=== PATIENT | female | born 1950 | race Caucasian/White ===

== ENCOUNTER 2021-03-13 15:57 | Inpatient (IN) | payer MEDICARE ==
[~2021-03-13] VITALS: Ht 162.6 cm; Wt 66.7 kg
--- NOTE | 2021-03-13 16:05 | NUR ---
TO ER BED 9, [id number] [facility] FOR HEADACHE AND DIZZINESS SINCE SATURDAY AM S/P FALL AND HITTING HEAD TO RV HEATER. AAOX3, BREATHING EVEN AND NON LABORED, CONNECTED TO MONITOR
--- NOTE | 2021-03-13 16:10 | NUR ---
DR QUEEN AT BEDSIDE
[2021-03-13 16:33] LABS: BASOPHILS % (AUTO) 0.5 % (0.0-2.0); EOSINOPHILS % (AUTO) 1.3 % (0.0-6.0); HEMATOCRIT 34 % (33-45); HEMOGLOBIN 11.6 g/dL (11.5-14.8); LYMPHOCYTES # (AUTO) 1.3 K/uL (0.8-4.8); LYMPHOCYTES % (AUTO) 17.4 % (20.0-44.0); MEAN CORPUSCULAR HGB CONC 34 g/dl (31.0-36.0); MEAN CORPUSCULAR VOLUME 91 fL (82-100); MONOCYTES # (AUTO) 0.6 K/uL (0.1-1.30); MONOCYTES % (AUTO) 7.8 % (2.0-12.0); NEUTROPHILS # (AUTO) 5.6 K/uL (1.8-8.9); PLATELET COUNT (AUTO) 224 K/uL (150-450); RED BLOOD CELL COUNT(AUTO) 3.78 MIL/uL (4.0-5.2); WHITE BLOOD COUNT (AUTO) 7.6 K/uL (4.3-11.0)
[2021-03-13 16:41] LABS: CALCIUM, SERUM 8.8 mg/dL (8.5-10.1); CREATININE 0.9 mg/dL (0.6-1.3); POTASSIUM 3.9 mmol/L (3.5-5.1)
--- NOTE | 2021-03-13 16:55 | NUR ---
TAM ([facility]) [phone]
--- NOTE | 2021-03-13 17:39 | NUR ---
SPOKE TO RADIOLOGY MD. PT HAS 3 MM ACUTE SUBDURAL HEMATOMA. DR.PHAM GONZALES.
--- NOTE | 2021-03-13 17:56 | NUR ---
NOTIFIED DR. BALDERAS OF PT CT
--- NOTE | 2021-03-13 18:17 | NUR ---
DR QUEEN TALKING TO THE PATIENT
[2021-03-13] MEDS ORDERED: MORPHINE SULFATE INJ 2 MG/ML DISP.SYRIN IV ONE (18:30)
[2021-03-13] MEDS ORDERED: ONDANSETRON HCL/PF - ER 4 MG/2 ML VIAL IV ONE (18:30)
[2021-03-13] MEDS ORDERED: ONDANSETRON HCL/PF 4 MG/2 ML VIAL ONE (18:51)
[2021-03-13] MEDS ORDERED: MORPHINE SULFATE INJ 2 MG/ML DISP.SYRIN ONE (18:52)
--- NOTE | 2021-03-13 19:00 | NUR ---
COVID SWAB DONE AND SENT TO LAB
--- NOTE | 2021-03-13 19:47 | NUR ---
MRSA SWAB COLLECTED AND SENT TO LAB. PATIENT'S BELONGINGS LIST DONE.
[2021-03-13] MEDS ORDERED: ONDANSETRON HCL/PF 4 MG/2 ML VIAL IVP PRN (20:30)
[2021-03-13] MEDS ORDERED: ACETAMINOPHEN 325 MG TABLET PO PRN (20:30)
--- NOTE | 2021-03-13 20:46 | NUR ---
SPOKE TO PT, PT AAOX4, NO NEURO DEFICIT. VSS.
--- NOTE | 2021-03-13 21:17 | NUR ---
REPORT GIVEN TO BERT PADRON FOR LANIE
--- NOTE | 2021-03-13 21:30 | NUR ---
PT TRANSFERED PER ACLS PROTOCOL
--- NOTE | 2021-03-13 21:41 | NUR ---
RN ms admission notes Received Pt from VITO Ratliff. Pt arrived at the unit with a gurney. Pt is alert and orientedX4. Respiration is normal in 2 L NC. No SOB. No S/S of distress noted. IV sites at R wrist#20 is clean, intact and flushes well. Skin assessment is done and performed and picture taken. Pt is able to ambulates with a steady gait and assist. Received admission orders from MD. Reorient Pt to the room and the use of call light. Pt verbalize understanding. Safety precautions is maintained. Bed at low position, brakes locked, side rails upX2, bed alarm is on and call light is within reach. Will continue to monitor.
[2021-03-13 22:00] VITALS: BP 175/81
[2021-03-13] MEDS: MORPHINE SULFATE INJ 2 MG/ML DISP.SYRIN IV PRN (22:15)
--- NOTE | 2021-03-13 22:15 | NUR ---
RN notes Pt is complaining of generalized pain 10/10 on pain scale and requesting morphine. Administered morphine 2 mg/iv push/prn as ordered for pain. Safety precautions is maintained. Will continue to monitor.
[2021-03-13] MEDS ORDERED: DEXTROSE 50%-WATER 50 ML DISP.SYRIN IV PRN (22:30)
--- NOTE | 2021-03-13 22:30 | NUR ---
RN notes Pt's blood sugar HS 78. Held regular insulin per level ordered. No S/S of hypoglycemia. Snack is provided. Will continue to monitor.
[2021-03-13] MEDS: BLOOD SUGAR DIAGNOSTIC 1 EACH STRIP IN SCH (22:38)
--- NOTE | 2021-03-13 22:48 | NUR ---
RN notes Pt signed consent for CT head WO contrast per MD order.
[2021-03-13] MEDS: INSULIN REGULAR, HUMAN 100 UNIT/ML 3 ML VIAL SQ PRN (22:55)
[2021-03-13] MEDS ORDERED: LEVETIRACETAM (500MG) 500 MG/5 ML VIAL IV ONE (23:15)
[2021-03-13 23:32] VITALS: BP 164/76
[2021-03-13] MEDS: hydrALAZINE HCL IV 20 MG VIAL IV PRN (23:44)
--- NOTE | 2021-03-13 23:45 | NUR ---
RN notes Received Keppra from nursing supervisor fabrication and assembly.
--- NOTE | 2021-03-13 23:47 | NUR ---
RN notes Pt's BP 164/76. Administered hydralazine 10mg/iv push/prn as ordered for high BP. Safety precautions is maintained. Will continue to monitor.
[2021-03-13] MEDS: LEVETIRACETAM (500MG) 500 MG in IV NS 0.9% 100 ML IV SCH (23:55)
[2021-03-14 00:36] VITALS: BP 122/51
--- NOTE | 2021-03-14 00:38 | NUR ---
RN notes Pt's BP 122/51, Pulse 69. No S/S of distress noted. Pt denies any pain at this time. Will continue to monitor.
--- NOTE | 2021-03-14 02:15 | NUR ---
RN notes Pt is complaining of headache and requesting meds. Administered tylenol 325mg/2 tabs/po/prn as ordered for headache. safety precautions is maintained. Will continue to monitor.
[2021-03-14] MEDS: MORPHINE SULFATE INJ 2 MG/ML DISP.SYRIN IV PRN ×2 (02:46→08:00)
--- NOTE | 2021-03-14 02:46 | NUR ---
RN notes Pt is complaining of generalized pain and requesting morphine. Administered morphine 2 mg/iv push/prn as ordered for pain. Safety precautions is maintained. Will continue to monitor.
[2021-03-14] MEDS: BLOOD SUGAR DIAGNOSTIC 1 EACH STRIP IN SCH ×3 (05:31→17:30)
[2021-03-14] MEDS: INSULIN REGULAR, HUMAN 100 UNIT/ML 3 ML VIAL SQ PRN (05:32)
--- NOTE | 2021-03-14 06:49 | NUR ---
MS RN CLOSING NOTE: PATIENT BECAME IRATE TOWARDS END OF SHIFT. STATING, "I TAKE 30MG OF MORPHINE TWICE A DAY! I WANT TO TALK TO THE NURSING BALLOON SANDER NOW!! IF SHE'S NOT HERE IN 1 HOUR, I'M LEAVING!" PATIENT THREW HER ICE PACKS, CHUCKS AND ITEMS FROM HER BEDSIDE TABLE ONTO THE FLOOR. NURSING HAS BEEN ADDRESSING PATIENT'S PAIN (HEADACHE) WITH PRN RX ANALGESICS, ICE PACKS, REPOSITIONING, PILLOWS SINCE SHE ARRIVED TO UNIT. BALLOON SANDER NOTIFIED. ENDORSED TO ONCOMING NURSE.
[2021-03-14 07:14] LABS: BASOPHILS % (AUTO) 0.3 % (0.0-2.0); EOSINOPHILS % (AUTO) 3.1 % (0.0-6.0); HEMATOCRIT 35 % (33-45); HEMOGLOBIN 11.5 g/dL (11.5-14.8); LYMPHOCYTES # (AUTO) 2.1 K/uL (0.8-4.8); LYMPHOCYTES % (AUTO) 35.4 % (20.0-44.0); MEAN CORPUSCULAR HGB CONC 33 g/dl (31.0-36.0); MEAN CORPUSCULAR VOLUME 92 fL (82-100); MONOCYTES # (AUTO) 0.6 K/uL (0.1-1.30); NEUTROPHILS # (AUTO) 3.1 K/uL (1.8-8.9); NEUTROPHILS % (AUTO) 51.2 % (43.0-81.0); PLATELET COUNT (AUTO) 208 K/uL (150-450); RED BLOOD CELL COUNT(AUTO) 3.78 MIL/uL (4.0-5.2)
[2021-03-14 07:42] LABS: ALBUMIN 3.5 g/dL (3.4-5.0); BILIRUBIN,TOTAL 0.3 mg/dL (0.2-1.0); CALCIUM, SERUM 8.4 mg/dL (8.5-10.1); CREATININE 0.9 mg/dL (0.6-1.3); MAGNESIUM 2.5 mg/dL (1.8-2.4); PHOSPHORUS 4.3 mg/dL (2.5-4.9); POTASSIUM 3.5 mmol/L (3.5-5.1); TOTAL PROTEIN, SERUM 6.7 g/dL (6.4-8.2)
--- NOTE | 2021-03-14 08:00 | NUR ---
m/s management developer: notes c/o 10/10 head pain, pt easily irritable and gets angry. medicated with morphine 2mg ivp by rn. instructed to call for assistance.
--- NOTE | 2021-03-14 08:09 | NUR ---
WOUND CARE CONSULT: PT ANGRY AND IRRITABLE, STATING " IF YOU WANT TO PROTECT MY SKIN, YOU SHOULD HAVE TAKEN BETTER CARE OF ME." PT PRESENTS WITH DRY ABRASION TO POSTERIOR SCALP, PRESENT ON ADMISSION. NO DRAINAGE NOTED. PT ABLE TO TURN AND REPOSITION IN BED. PT IS CONTINENT. WILL SEE PRN.
--- NOTE | 2021-03-14 08:30 | NUR ---
m/s entry level business analyst: notes pt remains angry and irritable and saying she has to take her morphine sulfate 30mg pills, it works for me. dr. gomes notified and made aware.
[2021-03-14 08:39] VITALS: BP 171/76
[2021-03-14] MEDS: hydrALAZINE HCL IV 20 MG VIAL IV PRN (09:24)
[2021-03-14] MEDS ORDERED: ROSU20TA32 PO (09:50)
[2021-03-14] MEDS ORDERED: SUVO10TA PO (09:50)
[2021-03-14] MEDS ORDERED: THYR15TA9 PO (09:50)
[2021-03-14] MEDS ORDERED: CARV3.122 PO (09:50)
[2021-03-14] MEDS ORDERED: TRAZ-257 PO (09:50)
[2021-03-14] MEDS ORDERED: POTA10TA10 PO (09:50)
[2021-03-14] MEDS ORDERED: BACL10TA PO (09:50)
[2021-03-14] MEDS ORDERED: OXYC1TAB12 PO (09:50)
[2021-03-14] MEDS ORDERED: FURO20TA4 PO (09:50)
[2021-03-14] MEDS ORDERED: PROM25TA15 PO ×2 (09:50→09:51)
[2021-03-14] MEDS ORDERED: CLON1TAB12 PO ×2 (09:50)
[2021-03-14] MEDS ORDERED: HORMONE MEDICATION PO (09:50)
[2021-03-14] MEDS ORDERED: MORP30TA7 PO (09:50)
[2021-03-14] MEDS: LEVETIRACETAM (500MG) 500 MG in IV NS 0.9% 100 ML IV SCH (10:30)
--- NOTE | 2021-03-14 11:00 | NUR ---
RN NOTES PT REFUSED HER KEPPRA IVPB. DESPITE EXPLANATION GIVEN, PT STATES THIS MEDICATION GIVES HER A HEADACHE AND DOES NOT WANT TO ACCEPT. RISKS OF NOT TAKING THIS MEDICATION WERE TAUGHT TO THE PT. DR WESTBROOK WAS NOTIFIED.
[2021-03-14] MEDS ORDERED: HYDROMORPHONE 1 MG/1 ML DISP.SYRIN IM/IV/SC ONE (11:27)
[2021-03-14] MEDS ORDERED: HYDROMORPHONE 1 MG/1 ML DISP.SYRIN IM/IV/SC PRN (11:30)
--- NOTE | 2021-03-14 11:30 | NUR ---
m/s archival studies professor: pain management consult seen and examined by dr. santos with new orders. orders acknowledged.
--- NOTE | 2021-03-14 11:44 | NUR ---
m/s dental ceramist assistant: notes pt remains angry and irritable re: her head pain. educatedc/o 01/15 head pain, medicated with dilaudid 1mg ivp by rn. instructed to call for assistance. will continue to monitor.
[2021-03-14 12:00] VITALS: BP 141/66
[2021-03-14] MEDS ORDERED: oxyCODONE IR immediate release 5 MG PO PRN (12:00)
[2021-03-14] MEDS ORDERED: MORPHINE SULFATE SR 30 MG TABLET.SA PO SCH (12:00)
[2021-03-14] MEDS ORDERED: clonazePAM 1 MG TABLET PO PRN ×2 (12:00→22:00)
[2021-03-14] MEDS ORDERED: BACLOFEN (10 MG) 10 MG TABLET PO PRN ×2 (12:00→13:00)
--- NOTE | 2021-03-14 12:14 | NUR ---
m/s distribution center assistant: notes pt verbalized 7/10 pain and saying that it helps for 20 minutes. will continue to monitor.
--- NOTE | 2021-03-14 12:24 | NUR ---
SS consult: SS Consult requested for pt. fall of a bunk bed. The pt. is a 70 year old female admitted to [facility] due to "subdural hematoma" per EMR after pt. fell from a 5 foot bunk bed. PATRICK met with pt. bedside. the pt. is awake alert & oriented x 4. The pt. appears well-groomed. Pt. has depressed mood and affect. The pt. denies current SI/HI and denies hallucinations. Pt,'s thought process is WNL. PATRICK explored situation. Pt. stated she went camping with her son, Joao Keys [phone] and she slept on the top bunk bed because her son is very tall. Pt. stated she got up to use the restroom at night and forgot she was on the top bunk. Per pt. she fell and hit her head on a pointy park of the room heater. PATRICK explore pt.'s living situation. Pt. states she lives at home [[address] [place] [address] [place] [id number]; [phone]]. Pt. states she was originally supposed to fly back to [place] today and would like to know when she is cleared to fly. Noted. PATRICK notified pt.'s nurse, Patrick. PATRICK explore pt.'s mental health Hx. Pt. states she suffers from Depression due to health issues. Pt. states she has never been prescribed medication for Depression and does not have a psychiatrist or therapist. Pt. expressed interest in therapy or psychiatry services. PATRICK encouraged pt. to call her PCP when she return to [place] and ask for referral. Pt. is agreeable. Pt. states she is ambulatory but currently "dizzy". Pt. denies drug or alcohol use. Plan: Pt. plans to fly back to her home in [place] when medically cleared to do so. Pt. states her son,Joao Keys [phone] is a locala nd resides on [facility] and is available to assist her with transportation upon [place]. PATRICK offered senior resources to pt. even though numbers may not be applicable to her since she resides in [place] and pt. accepted them SW will remains available as needed. ABUSE PREVENTION: ELDER ABUSE HOTLINE (29/10) ADULT PROTECTIVE SERVICES HOTLINE LONG-TERM CARE [facility] AREA ON AGING (HOTLINE) ADULT DAY HEALTH CARE CARE CENTERS: Private pay or Medi-cadence funded adult day care [place] [facility] , [facility] , [facility] , [facility] Adult [facility] Health Care , [facility] Adult Day Health Care , [facility] Adult Daycare Center , [place] ONE Generation Center , [facility] , [place] ALZHEIMERS DISEASE/DEMENTIA: Alzheimers Association Helpline [facility] www.alz.org/[facility] Department of Aging www.lacity.org Family Caregiver Bertram www.caregiver.org [place] Caregiver Resources Center/Family Support www.[facility].org CANCER RESOURCES: [place] Cancer Society www.cancer.org Cancer Support Community www.CancerSupportVvsb.org: CancerCare www.cancercare.org [facility] Cancer Support Center www.[facility].org COMMUNITY HEALTH ASSOCIATIONS: AARP www.aarp.org ALS Association (ask for Michelle) www.als.org Jama[place] Diabetes Association www.diabetes.org Jama[place] Heart Association www.heart.org Jamaican Lung Association www.lungusa.org Jamaican Parkinson Disease Association www.apdaparkinson.org Jamaican [place] , www.redcross.org Arthritis Foundation www.arthritis.org Crohns & Colitis Foundation of Jamaican www.ccfa.org/chapters/vicky National Multiple Sclerosis Society www.nationalmssociety.org Myasthenia Gravis Foundation www.myasthenia-ca.org National Stroke Association www.stroke.org CONSERVATORSHIP & GUARDIANSHIP: AARP Bet Tzedek Legal Services Center for Health Care Rights Eldercare Information and Referral Chemical Technician [facility]: [facility] Referral Service [facility] Legal Services Office of the Public Guardian [place] EYESIGHT DISORDER RESOURCES: [place] Macular Degeneration Foundation [facility] www.[facility] hospitalin[facility].org GRIEF AND BEREAVEMENT RESOURCES: The [place] , [facility] THE PRESCOTT Connection , [facility] Bereavement Center , [place] HEARING DISORDER RESOURCES: [place] Telephone Access Program Deaf and Disabled Telecommunications Program www.ddtp.cpu.ca.gov HearRx Hearing Centers ([place]) Better Hearing Systems , [place] GLAD ([facility] Agency on Deafness) V/ TTY; Senior Architect/Design Manager , [facility] Hearing [facility] -low income hearing aid assistance www.Virtual Event Bagshearingfoundation.org [facility] Juan HELP AT HOME CAREGIVER SUPPORT: In Home Support Services (Must have Medi-Cadence to be eligible) *Ask for a list of agencies that provide services to assist with care in the home. Local Senior Centers also have listings of care providers. HOME SAFETY MODIFICATIONS AND EQUIPMENT: Senior centers have additional referrals. [place] Agent Video Intelligence and The Social Radio Investment Dept. Handyworker Program (low income) or Visit http://hcidla.[facility].org/rko-puuztl-cn for more information National Seating and Mobility and/or ; Forever Active www.foreverHybrid Paytech.Coinfloor Stay Home Safe www.Stayhomesafe.Coinfloor LIFE ALERT RESPONSE SYSTEM: Simpleviewline Services 678-572-5761 www. Sanovi Technologies Life Alert 493-819-9770 www.Pick1 Life Station 907-181-4836 www.Datadecisionation.Coinfloor Safe Return 225-495-4185 www.alz.or/safereturn Cell Phones for Seniors www.NanoPrecision Holding Company MEALS AND FOOD PROGRAMS: Cooter Meals on Wheels [phone] [place] Meals on Wheels [phone] [facility] [phone] [place] to the Homebound [phone] [place] to the Homebound [phone] [facility] to the Homebound [phone] [facility] to the Homebound [phone] Frank Murcia [phone] [facility] [phone] ONE Generation [phone] [facility] [phone] [facility] [phone] Meals on Wheels [phone] For all ages: $6.85/ meal w side. Delivered M-F from 10 am-1pm. Application and payment is done over the phone. Frozen meals available for weekends. Emergency Food Coalition [phone] [place] Fire Hose Curer [phone] [facility] [phone] Kriss Leavitt Outreach- Brown bag lunches [phone] [facility] [phone] MEAL/GROCERY DELIVERY PROGRAMS: [facility] Gourmet Meals [phone]- [facility] [phone]- [facility] Magic Kitchen [phone] Moms Meals [phone] (ask Nair for Discount Select grocery stores may provide delivery. MEDICAL INSURANCE SUPPORT SERVICES: Center for Health Care Rights [phone] Health Insurance Counseling/Advocacy Programs (HICAP)-Must have Medicare. Offers counseling for Medi-Cadence eligibility [phone] [facility] of Public Fire Hose Curer [phone] www.intermountain healthcare.ca.gov Medicare [phone] www.socialsecurity.org Social Security [phone] SENIOR ACTIVITY PROGRAMS: *Contact a local senior center, adult school, recreation facility or community college for education, fitness, recreation, and social programs. Aquatic Therapy and Adapted Exercise programs through [facility] [phone] Encore at [facility] [phone] www.[facility]/encore H2U- Senior Friends [phone] [place] Senior Programs [phone] www.oasisnet.org Suddenly 65 www.gbuhfcav34.com SENIOR CENTERS: [facility] [phone] [facility] [phone] [phone] [facility] [phone] [facility] [phone] [facility] [phone] [facility] [phone] [facility] [phone] One Generation, [facility] [phone] [facility] [phone] [facility] [phone] [facility] [phone] [facility] [phone] TRANSPORTATION: Local [facility] may have applications for transportation programs and additional resources. ACCESS Services [phone] Transportation for seniors and disabled persons 7 days a week requiring 254 hr. advance reservation. Must apply and register for program israel eligible. Vive Unique [phone] or [phone] Transportation for seniors and persons with ADA card/metro disabled card in the [facility]. M-F only. Must register for services. ONE GENERATION [phone] Serves 65 years + in conjunction with Altimet program. Must be registered with both programs. A to B Transport [phone] Provides wheelchair/gurney van service. Adult Medical Transport [phone] Accepts [facility] with prior authorization. Care Van [phone] Provides wheelchair Transport. [facility] Wide Transportation [phone] Provides gurney service [facility] [phone] Gurney Transport. [facility] Transportation [phone] wheelchair & gurney transport [facility] Transportation [phone] wheelchair & gurney transport [place] Non-Emergency Transport [phone] wheelchair & gurney transport [facility] Living [place] [phone] Short Term Transportation primarily for adults with disabilities on social security income. Nominal fee may apply and a reservation is required. [facility] Bulletproof Group Limited [phone] or [phone] Demand Energy Networks [phone] [place] [address] Referral Services -[phone] For additional programs & services VETERANS RESOURCES: Submissions for Aid and Attendance should be done directly to Federal VA office locatd at : [address] [facility] [phone] National Caregiver Support Line [phone] Cadence kimani Veterans Services Field Office [phone] [place] Department of [place] Affairs [phone] Pension Information [phone]
--- NOTE | 2021-03-14 13:00 | NUR ---
m/s tobacco warehouse agent: md visit seen and examined by dr. gomes. dr. gomes called dr. mckinney (neuro) for consult. all questions and concerns by pt were answered by dr. gomes.
[2021-03-14] MEDS ORDERED: MORPHINE SULFATE SR 15 MG TABLET.SA PO SCH (13:08)
--- NOTE | 2021-03-14 17:40 | NUR ---
m/s wall and floor tiler: neuro consult seen and examined by dr. mckinney. son at bedside. per dr. mckinney, pt is clear to go home. md to call dr. gomes and to let him know.
--- NOTE | 2021-03-14 17:45 | NUR ---
m/s envelope folder: notes dr. gomes called with order to d'c pt home and to hold off the flight for a week and to follow up with primary medical doctor. order carried out and acknowledged.
--- NOTE | 2021-03-14 18:10 | NUR ---
m/s product engineering manager: notes discharge instructions given to pt and son, both verbalized understanding. h/l removed with tip intact. pt getting ready.
--- NOTE | 2021-03-14 18:30 | NUR ---
m/s line puller: notes discharge home in stable condition accompanied by son via private car with all d'c papers and valuables.
[2021-03-14] MEDS ORDERED: LEVETIRACETAM (250 MG) 250 MG TABLET PO SCH (21:00)
[2021-03-14] MEDS ORDERED: CARVEDILOL 6.25 MG TABLET PO SCH (21:00)
[2021-03-14] MEDS ORDERED: TRAZODONE 50 MG TABLET PO SCH (22:00)
[2021-03-14] MEDS ORDERED: ATORVASTATIN 40 MG TABLET PO SCH (22:00)
== END 2021-03-14 18:27 | disposition home or self-care (01) | DRG 87 ==
LOC: ER 16:02 → TELE 21:00 → MED 22:12
PROVIDERS: ADMIT Internal Medicine; ATTEND Internal Medicine
DX: S06.5X0A Traumatic subdural hemorrhage without loss of consciousness, initial encounter (principal); R73.03 Prediabetes; F41.9 Anxiety disorder, unspecified; M79.7 Fibromyalgia; Z20.822 Contact with and (suspected) exposure to COVID-19; M19.90 Unspecified osteoarthritis, unspecified site; Z88.0 Allergy status to penicillin; Z88.2 Allergy status to sulfonamides; Z79.891 Long term (current) use of opiate analgesic; W06.XXXA Fall from bed, initial encounter; Y93.9 Activity, unspecified; Y92.009 Unspecified place in unspecified non-institutional (private) residence as the place of occurrence of the external cause; G89.29 Other chronic pain; Z86.73 Personal history of transient ischemic attack (TIA), and cerebral infarction without residual deficits; R40.2362 Coma scale, best motor response, obeys commands, at arrival to emergency department; R40.2142 Coma scale, eyes open, spontaneous, at arrival to emergency department; R40.2252 Coma scale, best verbal response, oriented, at arrival to emergency department; I10 Essential (primary) hypertension; Z98.890 Other specified postprocedural states; R51.9 Headache, unspecified
CPT/HCPCS: 36415; 70450-TC; 72125-TC; 80048-TC; 80053-TC; 82962-TC; 83735-TC; 84100-TC; 84484-TC; 85025-TC; 87081-TC; C9803; G0378; J0360; J1170; J1815; J1953; J2270; J2405; J7030; J7040